=== PATIENT | female | born 1975 | race Caucasian/White ===

== ENCOUNTER → 2017-04-15 | Outpatient (CLI) | payer OTHER ==
[~2017-04-15] VITALS: Ht 162.6 cm; Wt 72.2 kg
[~2017-04-15] MED LIST: ZANTAC150 MG PO
== END | disposition home or self-care (01) ==
LOC: AMB 10:16 → OPR 12:00
PROC: 0DJD8ZZ Inspection of Lower Intestinal Tract, Via Natural or Artificial Opening Endoscopic (ICD-10-PCS; principal; 2017-04-15)
DX: Z12.11 Encounter for screening for malignant neoplasm of colon (principal); Z80.0 Family history of malignant neoplasm of digestive organs; K64.8 Other hemorrhoids; K21.9 Gastro-esophageal reflux disease without esophagitis
CPT/HCPCS: J2250; J3010